=== PATIENT | female | born 1975 | race Caucasian/White ===

== ENCOUNTER 2017-04-12 15:46 | Emergency (ER) | payer OTHER | END 2017-04-12 17:50 | disposition home or self-care (01) | LOC: ER1 15:46 | DX: R51 Headache (principal); S16.1XXA Strain of muscle, fascia and tendon at neck level, initial encounter; S29.012A Strain of muscle and tendon of back wall of thorax, initial encounter; S39.012A Strain of muscle, fascia and tendon of lower back, initial encounter; V49.40XA Driver injured in collision with unspecified motor vehicles in traffic accident, initial encounter; E11.9 Type 2 diabetes mellitus without complications; Z79.84 Long term (current) use of oral hypoglycemic drugs; Z79.899 Other long term (current) drug therapy | CPT/HCPCS: 70450; 71010; 72125; 72128; 72131; 84703; 99284 ==

== ENCOUNTER 2021-03-16 07:52 | Emergency (ER) | payer OTHER ==
[~2021-03-16 07:52] MED LIST: IBUPROFEN600 MG PO; OMNICEF 300 MG300 MG PO; TESSALON PERLE100 MG PO; VENTOLIN HFA 66.7 GM INH; VIBRAMYCIN100 MG PO; ZOFRAN ODT 4 MG4 MG SL
[2021-03-16] MEDS ORDERED: ZOFRAN4 MG PO (08:39)
== END 2021-03-16 09:05 | disposition home or self-care (01) ==
LOC: ER1 07:52
DX: R11.2 Nausea with vomiting, unspecified (principal); R19.7 Diarrhea, unspecified; E11.9 Type 2 diabetes mellitus without complications; Z88.1 Allergy status to other antibiotic agents; Z79.899 Other long term (current) drug therapy
CPT/HCPCS: 99284

== ENCOUNTER 2021-08-16 06:37 | Emergency (ER) | payer OTHER ==
[~2021-08-16 06:37] MED LIST changes: +ZOFRAN4 MG PO
[2021-08-16 07:59] LABS: HEMOGLOBIN 13.9 gm/dl (12.3-15.3); RED BLOOD COUNT 4.59 M/UL (4.00-5.10); WHITE BLOOD COUNT 8.2 K/UL (4.5-11.0)
[2021-08-16 08:21] LABS: BUN/CREATININE RATIO 14 (0-10)
== END 2021-08-16 09:57 | disposition home or self-care (01) ==
LOC: ER1 06:37
PROVIDERS: Physician Assistant
DX: J02.9 Acute pharyngitis, unspecified (principal); R51.9 Headache, unspecified; Z20.822 Contact with and (suspected) exposure to COVID-19
CPT/HCPCS: 71045; 80053; 81001; 85025; 87081; 87086; 87880; 96374; 99284; J2405; U0002

== ENCOUNTER 2021-12-04 08:16 | Emergency (ER) | payer OTHER ==
[2021-12-04 09:45] LABS: HEMOGLOBIN 14.2 gm/dl (12.3-15.3); RED BLOOD COUNT 4.78 M/UL (4.00-5.10); WHITE BLOOD COUNT 7.2 K/UL (4.5-11.0)
[2021-12-04 10:06] LABS: BUN/CREATININE RATIO 19 (0-10)
[2021-12-04] MEDS ORDERED: BENZONATATE100 MG PO (10:29)
== END 2021-12-04 11:24 | disposition home or self-care (01) ==
LOC: ER1 08:16
PROVIDERS: Nurse Practitioner
DX: J06.9 Acute upper respiratory infection, unspecified (principal); E11.65 Type 2 diabetes mellitus with hyperglycemia; Z88.0 Allergy status to penicillin
CPT/HCPCS: 36600; 71045; 80048; 82803; 85025; 96374; 99285; J1100

== ENCOUNTER 2021-12-25 08:28 | Emergency (ER) | payer OTHER ==
[~2021-12-25 08:28] MED LIST changes: +BENZONATATE100 MG PO
[2021-12-25 09:16] LABS: HEMOGLOBIN 14.9 gm/dl (12.3-15.3); RED BLOOD COUNT 4.9 M/UL (4.00-5.10); WHITE BLOOD COUNT 9.7 K/UL (4.5-11.0)
[2021-12-25 09:20] LABS: BUN/CREATININE RATIO 15 (0-10)
[2021-12-25] MEDS ORDERED: MOBIC15 MG PO (11:19)
[2021-12-25] MEDS ORDERED: ONDANSETRON ODT4 MG SL (11:19)
[2021-12-25] MEDS ORDERED: DIFLUCAN150 MG PO (11:19)
== END 2021-12-25 11:45 | disposition home or self-care (01) ==
LOC: ER1 08:28
PROVIDERS: Physician Assistant
DX: N83.202 Unspecified ovarian cyst, left side (principal); B37.3 Candidiasis of vulva and vagina; Z88.0 Allergy status to penicillin
CPT/HCPCS: 80053; 81001; 83690; 84703; 85025; 96374; 96375; 99284; J1885; J2270; J2405; J7030; Q9967

== ENCOUNTER 2022-05-16 22:44 | Inpatient (IN) | payer OTHER ==
[~2022-05-16] VITALS: Ht 172.7 cm; Wt 90.7 kg
[~2022-05-16 22:44] MED LIST changes: +DIFLUCAN150 MG PO; +MOBIC15 MG PO; +ONDANSETRON ODT4 MG SL
[2022-05-16 23:22] LABS: RED BLOOD COUNT 4.51 M/UL (4.00-5.10)
[2022-05-17 00:46] LABS: BUN/CREATININE RATIO 18 (0-10)
[2022-05-17 08:41] LABS: HEMOGLOBIN 13.1 gm/dl (12.3-15.3); RED BLOOD COUNT 4.26 M/UL (4.00-5.10); WHITE BLOOD COUNT 11.8 K/UL (4.5-11.0)
[2022-05-17 09:17] LABS: BUN/CREATININE RATIO 13 (0-10)
[2022-05-18 04:08] LABS: HEMOGLOBIN 12.9 gm/dl (12.3-15.3); RED BLOOD COUNT 4.18 M/UL (4.00-5.10); WHITE BLOOD COUNT 10.4 K/UL (4.5-11.0)
[2022-05-18 04:29] LABS: BUN/CREATININE RATIO 12 (0-10)
[2022-05-19 06:28] LABS: HEMOGLOBIN 12.2 gm/dl (12.3-15.3); RED BLOOD COUNT 3.96 M/UL (4.00-5.10); WHITE BLOOD COUNT 9.1 K/UL (4.5-11.0)
[2022-05-19 12:58] LABS: BUN/CREATININE RATIO 6 (0-10)
[2022-05-20] MEDS ORDERED: METRONIDAZOLE500 MG PO (11:51)
[2022-05-20] MEDS ORDERED: LEVOFLOXACIN500 MG PO (11:51)
== END 2022-05-20 14:16 | disposition home or self-care (01) | DRG 872 ==
LOC: ER1 22:44 → MED SURG 4 05-17 00:58 → CDU 05-17 00:58 → MED SURG 4 05-17 16:57
PROVIDERS: Internal Medicine; Nurse Practitioner; ADMIT Internal Medicine
DX: A41.9 Sepsis, unspecified organism (principal); A09 Infectious gastroenteritis and colitis, unspecified; Z20.822 Contact with and (suspected) exposure to COVID-19; E66.9 Obesity, unspecified; E86.0 Dehydration; E11.65 Type 2 diabetes mellitus with hyperglycemia; I10 Essential (primary) hypertension; Z79.4 Long term (current) use of insulin; Z86.73 Personal history of transient ischemic attack (TIA), and cerebral infarction without residual deficits; Z83.3 Family history of diabetes mellitus; Z82.49 Family history of ischemic heart disease and other diseases of the circulatory system; Z68.30 Body mass index [BMI] 30.0-30.9, adult
CPT/HCPCS: 36415; 80048; 80053; 81001; 82550; 82553; 82962; 83605; 83690; 83735; 84100; 84439; 84443; 84484; 85025; 86140; 87040; 87449; 89055; 96361; 96374; 96375; 96376; 99285; C9113; J1170; J1956; J2270; J2405; J3480; Q9967